=== PATIENT | male | born 1975 | race Caucasian/White ===

== ENCOUNTER 2017-04-05 21:07 | Inpatient (IN) | payer MEDICAID ==
[~2017-04-05] VITALS: Ht 182.9 cm; Wt 81.1 kg
[2017-04-05] MEDS ORDERED: KETOROLAC 30 MG/1 ML IVPush ONE (21:30)
[2017-04-05] MEDS ORDERED: SODIUM CHLORIDE FLUSH 10ML SYR IVF ONE (21:30)
[2017-04-05 21:41] LABS: PH, VENOUS 7.234 pH (7.320-7.420)
[2017-04-05 21:44] LABS: HEMATOCRIT 40.6 % (39.2-51.8); HEMOGLOBIN 13.3 g/dL (13.7-18.0); WHITE BLOOD COUNT 14.2 x10^3/uL (3.4-10)
[2017-04-05 21:55] LABS: ASPARTATE AMINO TRANSFERASE 21 U/L (15-37); BLOOD UREA NITROGEN 15 mg/dL (7-18)
[2017-04-05] MEDS ORDERED: MAALOX/HYOSCYAMINE/LIDOCAINE 45 ML BTL ONE (21:57)
[2017-04-05] MEDS ORDERED: KETOROLAC 30 MG/1 ML ONE (21:57)
[2017-04-05] MEDS ORDERED: MAALOX/HYOSCYAMINE/LIDOCAINE 45 ML BTL PO ONE (22:00)
[2017-04-05] MEDS ORDERED: INSU100I13 SQ (22:29)
[2017-04-05] MEDS ORDERED: INSU100C SQ-INSULIN (22:29)
[2017-04-05] MEDS ORDERED: VENL25TA PO (22:30)
[2017-04-05] MEDS ORDERED: D5%-0.45% NACL 1,000 ML IV SCH (23:00)
[2017-04-05] MEDS ORDERED: INSULIN REGULAR 100 UNITS/ML, 3ML VIAL SQ-INSULIN SCH (23:00)
[2017-04-05] MEDS ORDERED: INSULIN REGULAR 100 UNITS/ML, 3ML VIAL ONE (23:08)
[2017-04-05] MEDS ORDERED: VENL150T PO (23:23)
[2017-04-06] MEDS ORDERED: ONDANSETRON 2MG/ML, 2ML IVPush PRN (00:30)
[2017-04-06] MEDS: ACETAMINOPHEN 325 MG TABLET PO PRN ×3 (01:05→23:44)
[2017-04-06] MEDS: TEMAZEPAM 15 MG CAPSULE PO PRN ×2 (02:14→23:47)
[2017-04-06] MEDS: ENOXAPARIN 40 MG/0.4 ML SQ SCH (02:15)
[2017-04-06] MEDS: SODIUM CHLORIDE 0.9% 1,000 ML IV SCH ×3 (02:15→19:19)
[2017-04-06 03:56] VITALS: BP 115/67
[2017-04-06 05:28] LABS: BLOOD UREA NITROGEN 17 mg/dL (7-18)
[2017-04-06 07:08] VITALS: BP 91/50
[2017-04-06 07:30] VITALS: BP 84/44
[2017-04-06] MEDS ORDERED: SODIUM CHLORIDE 0.9% 1,000ML IVBOLUS ONE (08:00)
[2017-04-06] MEDS: INSULIN ASPART 100 UNITS/ML, PEN SQ-INSULIN SCH ×4 (08:10→21:37)
[2017-04-06] MEDS ORDERED: MAALOX/HYOSCYAMINE/LIDOCAINE 45 ML BTL PO ONE (08:30)
[2017-04-06] MEDS: INSULIN DETEMIR 100 UNITS/ML, PEN SQ-INSULIN SCH (11:16)
[2017-04-06 14:21] VITALS: BP 94/51
[2017-04-06 19:45] VITALS: BP 114/54
[2017-04-06] MEDS: KETOROLAC 30 MG/1 ML IVPush PRN (21:53)
[2017-04-07 01:51] VITALS: BP 101/51
[2017-04-07] MEDS: SODIUM CHLORIDE 0.9% 1,000 ML IV SCH ×2 (02:16→07:58)
[2017-04-07 06:56] VITALS: BP 121/66
[2017-04-07 07:38] LABS: BLOOD UREA NITROGEN 10 mg/dL (7-18)
[2017-04-07 07:43] LABS: IS PT STATUS REG ER OR PRE ER? NO
[2017-04-07] MEDS: ENOXAPARIN 40 MG/0.4 ML SQ SCH (07:58)
[2017-04-07] MEDS: KETOROLAC 30 MG/1 ML IVPush PRN (07:58)
[2017-04-07] MEDS: INSULIN ASPART 100 UNITS/ML, PEN SQ-INSULIN SCH (07:59)
[2017-04-07] MEDS: INSULIN DETEMIR 100 UNITS/ML, PEN SQ-INSULIN SCH (08:00)
== END 2017-04-07 11:27 | disposition home or self-care (01) | DRG 638 ==
LOC: ED 23:16 → EDIP 04-06 00:08 → 3NE 04-06 00:37 → DCLOUNGE 04-07 10:55
PROVIDERS: ADMIT Internal Medicine; ATTEND Internal Medicine
DX: E10.10 Type 1 diabetes mellitus with ketoacidosis without coma (principal); E44.1 Mild protein-calorie malnutrition; E87.1 Hypo-osmolality and hyponatremia; E86.9 Volume depletion, unspecified; Z68.24 Body mass index [BMI] 24.0-24.9, adult; Z88.8 Allergy status to other drugs, medicaments and biological substances
CPT/HCPCS: 36415; 71020; 80048; 80053; 81003; 82010; 82803; 82947; 82962; 83036; 83690; 83735; 84100; 84484; 85025; 96372; J1650; J1815; J1885; J7030